=== PATIENT | male | born 1950 | race Caucasian/White ===

== ENCOUNTER 2016-12-05 06:00 | Day surgery (SDC) | payer MEDICARE, OTHER ==
[~2016-12-05] VITALS: Ht 170.2 cm; Wt 80.6 kg
[2016-12-05 07:03] VITALS: BP 151/68; PULSE 50; TEMP 97.4
[2016-12-05] MEDS ORDERED: AMARYL1 MG PO (07:18)
[2016-12-05] MEDS ORDERED: NITROSTAT0.4 MG/TAB SL (07:19)
[2016-12-05] MEDS ORDERED: LOPID 600M600 MG/TAB PO (07:20)
[2016-12-05] MEDS ORDERED: LIPITOR20 MG PO (07:21)
[2016-12-05] MEDS ORDERED: AXID150 MG PO (07:21)
[2016-12-05] MEDS ORDERED: ZIAC 10/6.25M1 UDTAB PO (07:22)
[2016-12-05] MEDS ORDERED: PLAVIX 75MG TAB75 MG PO (07:23)
[2016-12-05 12:30] VITALS: BP 149/76; PULSE 82; TEMP 98.4
[2016-12-05 12:45] VITALS: BP 145/60; PULSE 85
[2016-12-05 13:00] VITALS: BP 143/73; PULSE 80
[2016-12-05 13:15] VITALS: BP 134/76; PULSE 80
== END 2016-12-05 14:15 | disposition home or self-care (01) ==
LOC: SDCO 06:00
DX: K05.6 Periodontal disease, unspecified (principal); K02.9 Dental caries, unspecified; M27.0 Developmental disorders of jaws; I25.10 Atherosclerotic heart disease of native coronary artery without angina pectoris; I10 Essential (primary) hypertension; E78.5 Hyperlipidemia, unspecified; E11.9 Type 2 diabetes mellitus without complications; I25.2 Old myocardial infarction; K21.9 Gastro-esophageal reflux disease without esophagitis; Z79.84 Long term (current) use of oral hypoglycemic drugs; Z79.01 Long term (current) use of anticoagulants; Z95.5 Presence of coronary angioplasty implant and graft
CPT/HCPCS: J0295; J1100; J2270; J2405; J2704; J3010

== ENCOUNTER 2018-09-17 12:54 | Day surgery (SDC) | payer MEDICARE, OTHER ==
[~2018-09-17] VITALS: Ht 170.2 cm; Wt 77.1 kg
[~2018-09-17 12:54] MED LIST: AMARYL1 MG PO; AXID150 MG PO; LIPITOR20 MG PO; LOPID 600M600 MG/TAB PO; NITROSTAT0.4 MG/TAB SL; PLAVIX 75MG TAB75 MG PO; ZIAC 5/6.25MG T1 TAB PO
[2018-09-17] MEDS ORDERED: ASPIRIN E.C. 8181 MG PO (13:40)
[2018-09-17] MEDS ORDERED: GLUCOTROL XL5 MG/TAB PO (13:44)
[2018-09-17 13:56] VITALS: BP 164/82; PULSE 48; TEMP 97.8
[2018-09-17 14:50] VITALS: BP 148/84; PULSE 62; TEMP 97.2
--- NOTE | 2018-09-17 14:50 | NUR ---
Pt to GI bay3 via cart from ENDO. Pt awake and alert. Pt ambulates to recliner with stand by assistance. in room. Pt denies pain or nausea. Juice given per pt request. Will continue to monitor. Call light within reach.
[2018-09-17 15:05] VITALS: BP 150/90; PULSE 53
--- NOTE | 2018-09-17 15:05 | NUR ---
Pt continues to rest. Denies needs. Tolerating PO fluids without difficulties. Call light within reach.
[2018-09-17 15:20] VITALS: BP 142/81; PULSE 49
--- NOTE | 2018-09-17 15:20 | NUR ---
Pt continues to rest. Denies needs. Call light within reach.
[2018-09-17 15:35] VITALS: BP 156/77; PULSE 48
--- NOTE | 2018-09-17 15:35 | NUR ---
Pt continues to rest. Denies needs. Call light within reach.
[2018-09-17 15:55] VITALS: BP 164/99; PULSE 51
--- NOTE | 2018-09-17 15:55 | NUR ---
Discharge instructions reviewed. Pt voices understanding. IV site discontinued with all parts intact. Pt up to dress. Call light within reach.
--- NOTE | 2018-09-17 16:05 | NUR ---
Pt escorted to private car via wheel chair. Pt accompanied home by his .
== END 2018-09-17 16:05 | disposition home or self-care (01) ==
LOC: SDCO 12:54
DX: D37.4 Neoplasm of uncertain behavior of colon (principal); D12.2 Benign neoplasm of ascending colon; K57.30 Diverticulosis of large intestine without perforation or abscess without bleeding; K21.9 Gastro-esophageal reflux disease without esophagitis; I71.4 Abdominal aortic aneurysm, without rupture; Z95.5 Presence of coronary angioplasty implant and graft; I10 Essential (primary) hypertension; E11.65 Type 2 diabetes mellitus with hyperglycemia; Z79.84 Long term (current) use of oral hypoglycemic drugs; Z87.891 Personal history of nicotine dependence; Z79.82 Long term (current) use of aspirin; Z79.899 Other long term (current) drug therapy; Z79.02 Long term (current) use of antithrombotics/antiplatelets
CPT/HCPCS: J2704; J7030

== ENCOUNTER 2019-04-08 06:54 | Day surgery (SDC) | payer MEDICARE, OTHER ==
--- NOTE | 2019-04-05 17:40 | NUR ---
called patient, left voicemail message to have pt call back to [phone] to discuss upcoming procedure.
[~2019-04-08] VITALS: Ht 170.2 cm; Wt 169.4 kg
[2019-04-08] VITALS (460 sets, daily range): BP systolic 135–190; BP diastolic 82–102; PULSE 52–70; TEMP 97.4–98.4; O2SAT 91–100
[~2019-04-08 06:54] MED LIST changes: +ASPIRIN E.C. 8181 MG PO; +GLUCOTROL XL5 MG/TAB PO
[2019-04-08 07:43] LABS: HEMATOCRIT 42.6 % (42.0-52.0); HEMOGLOBIN 14.6 g/dl (13.5-18.0); MEAN CELL VOLUME 83 fl (80.0-100.0); MEAN CORPUSCULAR HEMOGLOBIN 29 pg (27.0-31.0); MEAN CORPUSCULAR HGB CONC 34 g/dl (33.0-37.0); PLATELET COUNT 188 K/mm3 (130-400); RED BLOOD COUNT 5.12 M/mm3 (4.20-5.60); REDCELL DISTRIBUTION WIDTH-CV 13.2 % (11.5-14.5)
[2019-04-08 07:58] LABS: CREATININE, serum 1.11 (0.66-1.25); POTASSIUM 3.6 mmol/L (3.4-5.0)
[2019-04-08] MEDS ORDERED: PLAVIX 75MG TAB75 MG PO (08:07)
[2019-04-08 08:19] LABS: PROTHROMBIN TIME 11.1 SECONDS (9.7-12.8)
[2019-04-08 08:21] LABS: PARTIAL THROMBOPLASTIN TIME 29.8 SECONDS (26.0-37.0)
--- NOTE | 2019-04-08 09:07 | NUR ---
SEE MERGE DOCUMENTATION FOR MEDICATION ADMINISTRATION TIMES AND INTRA/POST PROCEDURE SEDATION ASSESSMENTS. PLAN FOR RIGHT RADIAL ACCESS, BARBEAU TEST GOOD TO RIGHT WRIST.
--- NOTE | 2019-04-08 20:34 | NUR ---
PT RESTING IN BED, WATCHING TV, DENIESA ANY PAIN OR DOA AT THIS TIME. CURRENTLY ON 2L NS FOR COMFORT, AFEBRIL. RIGHT WRIST RADIAL PUNCTURE SITE C/D/I, DENIES PAIN NO S/S OR HEMATOMA. PT CURRENTLY ON NTG AT 10MCG/MIN AND AND 1/2 NS AND 100 ML/HR. WILL CONTINUE TO MONITOR PT STATUS AND UPDATE PROVIDERS NEEDED.
[2019-04-09] VITALS (354 sets, daily range): BP systolic 150–168; BP diastolic 83–96; PULSE 54–71; TEMP 98–98.6; O2SAT 50–100
[2019-04-09 06:09] LABS: BASO # 0.1 (0.0-0.2); BASO % 0.6 % (0.0-2.0); EOS # 0.2 (0.0-0.7); GRAN # 5.3 (1.4-6.5); GRAN % 60.7 % (42.2-75.2); HEMATOCRIT 40.8 % (42.0-52.0); HEMOGLOBIN 14.1 g/dl (13.5-18.0); LYMPH # 1.8 (1.2-3.4); LYMPH % 20.2 % (20.0-51.0); MEAN CELL VOLUME 84 fl (80.0-100.0); MEAN CORPUSCULAR HEMOGLOBIN 29 pg (27.0-31.0); MEAN CORPUSCULAR HGB CONC 35 g/dl (33.0-37.0); MEAN PLATELET VOLUME 11.4 fl (7.4-10.4); MONO # 1.4 (0.1-0.6); MONO % 16.3 % (1.7-9.3); PLATELET COUNT 171 K/mm3 (130-400); RED BLOOD COUNT 4.87 M/mm3 (4.20-5.60); REDCELL DISTRIBUTION WIDTH-CV 13.3 % (11.5-14.5)
[2019-04-09 06:42] LABS: CALCIUM 8.8 mg/dL (8.4-10.2); CREATININE, serum 1.07 (0.66-1.25); POTASSIUM 3.5 mmol/L (3.4-5.0)
[2019-04-09] MEDS ORDERED: BRILINTA90 MG PO (09:50)
[2019-04-09] MEDS ORDERED: LIPITOR 40MG TA40 MG PO (09:50)
[2019-04-09] MEDS ORDERED: PRINIVIL10 MG PO (09:51)
[2019-04-09] MEDS ORDERED: NORVASC 10MG10 MG PO (09:51)
== END 2019-04-09 11:05 ==
LOC: COL.CAR 06:54 → IMCU 10:20 → COL.CAR 04-09 11:05
PROVIDERS: Internal Medicine Cardiovascular Disease; Nurse Practitioner
DX: I25.10 Atherosclerotic heart disease of native coronary artery without angina pectoris (principal); I71.4 Abdominal aortic aneurysm, without rupture; K21.9 Gastro-esophageal reflux disease without esophagitis; I10 Essential (primary) hypertension; I25.2 Old myocardial infarction; E11.9 Type 2 diabetes mellitus without complications; Z79.82 Long term (current) use of aspirin; Z79.02 Long term (current) use of antithrombotics/antiplatelets; E78.2 Mixed hyperlipidemia
CPT/HCPCS: OP; J1644; J2250; J3010; Q9967